=== PATIENT | male | born 1970 | race African-American/Black ===

== ENCOUNTER 2019-02-03 12:14 | Emergency (ER) | payer BC ==
--- NOTE | 2019-02-03 12:57 | UC ---
Knee Pain HPI - HPI Summary HPI Summary: 48-year-old male comes in with a chief complaint of right popliteal pain. He's had it on and off this morning twice. It's mild makes the pain at about 1 out of 10 when it's there. 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 He is mostly concerned about the possibility of a DVT. Denies any injury. No chest pain or shortness of breath. Feels well otherwise. He is not on a blood thinner at this time. Nothing makes the pain worse because he doesn't have any pain right now. - History of Current Complaint Chief Complaint: UCGeneralIllness Stated Complaint: POSS BLOOD CLOT Time Seen by Provider: 02/03/19 12:34 Pain Intensity: 1 - Allergies/Home Medications Allergies/Adverse Reactions: Allergies Allergy/AdvReac Type Severity Reaction Status Date / Time Penicillins Allergy Unknown Verified 02/03/19 12:36 Reaction Details Home Medications: Home Medications ALPRAZolam [Alprazolam] 0.25 mg PO 02/03/19 [History] Olmesartan Medoxomil 40 mg PO 02/03/19 [History] hydrOXYzine HCl [Hydroxyzine HCl] 10 mg PO 02/03/19 [History] PMH/Surg Hx/FS Hx/Imm Hx Previously Healthy: Yes - DVT Psychological History: Anxiety - Surgical History Surgical History: None - Family History Known Family History: Positive: Non-Contributory - Social History Alcohol Use: None Substance Use Type: None Smoking Status (MU): Never Smoked Tobacco Review of Systems All Other Systems Reviewed And Are Negative: Yes Constitutional: Positive: Negative Skin: Positive: Negative Eyes: Positive: Negative ENT: Positive: Negative Respiratory: Positive: Negative Cardiovascular: Positive: Negative Gastrointestinal: Positive: Negative Motor: Positive: Negative Neurovascular: Positive: Negative Musculoskeletal: Positive: Other: - see hpi Neurological: Positive: Negative Psychological: Positive: Anxious Is Patient Immunocompromised?: No Physical Exam Triage Information Reviewed: Yes Appearance: Well-Appearing, No Pain Distress, Well-Nourished Vital Signs: Initial Vital Signs Temp 97.9 F 02/03/19 12:31 Pulse 75 02/03/19 12:31 Resp 18 02/03/19 12:31 BP 150/100 02/03/19 12:31 Pulse Ox 97 02/03/19 12:31 Vital Signs Reviewed: Yes Eye Exam: Normal Eyes: Positive: Conjunctiva Clear Neck exam: Normal Neck: Positive: Supple Respiratory: Positive: Lungs clear, Normal breath sounds, No respiratory distress Cardiovascular: Positive: RRR Musculoskeletal Exam: Normal Musculoskeletal: Positive: Strength Intact, ROM Intact, Other: - The right knee examination is normal. The knee has full range of motion is nontender. Negative Martha's. Stable to exam. The calf is also nontender to palpation. Normal capillary refill distally. No sensation deficit. Neurological Exam: Normal Neurological: Positive: Alert, Muscle Tone Normal Psychological Exam: Normal Psychological: Positive: Age Appropriate Behavior Skin Exam: Normal Knee Pain Course/Dx - Course Course Of Treatment: Patient Name: INÉS REYES Medical Record#: [id number] Ordering Physician: Marcelino Ferrari MD Acct.#: [id number] : 1970 Age: 48 Sex: M Location: [facility] Exam Date: 02/03/19 1251 ADM Status: REG ER Order Information: KNEE RIGHT 4+ VWS Accession Number: [id number] CPT: 27657 HISTORY: popliteal pain . COMPARISONS: None relevant available at the time of dictation. VIEWS: 4, Frontal, lateral, axial, and oblique views of the right knee FINDINGS: BONE DENSITY: Normal. BONES: There is no displaced fracture. JOINTS: There is no arthropathy. There is no suprapatellar joint effusion or lipohemarthrosis. ALIGNMENT: There is no dislocation. SOFT TISSUES: Unremarkable. OTHER FINDINGS: None. IMPRESSION: NO ACUTE OSSEOUS INJURY. IF SYMPTOMS PERSIST, RECOMMEND REPEAT IMAGING. <Electronically signed by Hakan Ash MD in OV> 02/03/19 1329 Order Information: VL LOWER EXT VEINS RIGHT Accession Number: [id number] CPT: 05325 HISTORY: right popliteal pain,Hx DVT COMPARISONS: None relevant TECHNIQUE: Multiple transverse and longitudinal ultrasound images were obtained of the right lower extremity from the level of the common femoral vein inferiorly through to the infrapopliteal veins using grayscale, color Doppler, and spectral Doppler imaging with and without compression and with augmentation. Comparison images were obtained of the contralateral common femoral vein. FINDINGS: VEINS: The venous system of the right lower extremity is compressible throughout its course, with normal flow on color Doppler imaging and normal response to augmentation on spectral Doppler imaging. SOFT TISSUES: Unremarkable. OTHER FINDINGS: None. IMPRESSION: NO RIGHT LOWER EXTREMITY DEEP VEIN THROMBOSIS <Electronically signed by Hkaan Ash MD in [place]> 02/03/19 2926 I discussed the x-ray and ultrasound results with the patient I discussed the x- ray and ultrasound reports with the patient. Because of the patient's history of blood clots he would like to follow-up with vascular surgery. I'm giving him general surgery's number as they have affiliation with vascular surgery in [place]. Patient will get reevaluated if he worsens or has any questions or concerns. - Differential Dx/Diagnosis Provider Diagnosis: Posterior right knee pain Discharge - Sign-Out/Discharge Documenting (check all that apply): Patient Departure All imaging exams completed and their final reports reviewed: Yes - Discharge Plan Condition: Stable Disposition: HOME Patient Education Materials: Knee Pain (ED) Referrals: Nuvia Lamas MD [Medical Doctor] - Marc Morgan MD [Medical Doctor] - [facility] [Provider Group] Additional Instructions: FOLLOW UP WITH YOUR DOCTOR IF NOT COMPLETELY IMPROVED. CALL GENERAL SURGERY TO ARRANGE VASCULAR SURGERY FOLLOW UP. GET RECHECKED FOR ANY WORSENING OF YOUR CONDITION OR QUESTIONS OR CONCERNS. - Billing Disposition and Condition Condition: STABLE Disposition: Home
== END 2019-02-03 14:31 | disposition home or self-care (01) ==
LOC: UCEAST 12:14
DX: M25.561 Pain in right knee (principal); Z86.718 Personal history of other venous thrombosis and embolism; Z88.0 Allergy status to penicillin
CPT/HCPCS: 99201; G0463

== ENCOUNTER 2019-10-07 21:41 | Emergency (ER) | payer BC ==
--- NOTE | 2019-10-07 21:59 | ED ---
Headache - HPI Summary HPI Summary: This patient is a 49 year old M presenting to [facility] accompanied by female friend with a chief complaint of migraine since 2-3 hours ago today 10/07/19. Symptoms aggravated by nothing. Symptoms alleviated by medication. Patient reports paramedics concerned of blockage in heart especially since female friend reports hx blood clot. Pt reports when he usually gets migraines (started when he was 20 years old) he usually gets numbness, which today was on his right side, starting in his leg going to his face which leads to his speech getting slurred. Pt reports tonight his vision was slightly blurry so he took 2 pills of hydroxyzine , lied down, and then numbness started moving to face. Pt reports he was getting ready to go out to watch movie. Pt reports he had not had migraine in several months. Pt reports right now migraine is concentrated in frontal area of head but denies intense pain or numbness. Pt denies CP, trouble breathing, pain or swelling in legs, and gait differences. - History Of Current Complaint Chief Complaint: EDHeadache Stated Complaint: HEADACHE PER EMS Time Seen by Provider: 10/07/19 21:46 Hx Obtained From: Patient Onset/Duration: Started hours ago - 2-3, Still Present Character: Migraine Aggravating Factor: Nothing Allevating Factors: Medication Associated Signs And Symptoms: Visual Changes - blurry, Other (Noted In Comments ) - numbness in legs and face, slurred speech; denies CP, trouble breathing, pain or swelling in legs, and gait differences. - Allergies/Home Medications Allergies/Adverse Reactions: Allergies Allergy/AdvReac Type Severity Reaction Status Date / Time Penicillins Allergy Unknown Verified 02/03/19 12:36 Reaction Details PMH/Surg Hx/FS Hx/Imm Hx Cardiovascular History: Reports: Hx Hypertension Neurological History: Reports: Hx Migraine - Surgical History Surgery Procedure, Year, and Place: none Infectious Disease History: No Infectious Disease History: Denies: Traveled Outside the [place] in Last 30 Days - Family History Known Family History: Positive: Diabetes, Other - prostate cancer - Social History Alcohol Use: None Hx Substance Use: No Substance Use Type: Reports: None Hx Tobacco Use: No Smoking Status (MU): Never Smoked Tobacco Review of Systems Positive: Blurred Vision Negative: Chest Pain Positive: Other - denies trouble breathing Positive: Other - denies pain or swelling in legs, gait differences Positive: Headache - migraine, Numbness, Slurred Speech All Other Systems Reviewed And Are Negative: Yes Physical Exam - Summary Physical Exam Summary: Appearance: Well-appearing, Well-nourished, lying in bed comfortably Skin: Warm, dry, no obvious rash Eyes: sclera anicteric, no conjunctival pallor ENT: mucous membranes moist, pharynx appears normal Neck: Supple, nontender Respiratory: Clear to auscultation, no signs of respiratory distress Cardiovascular: Normal S1, S2. No murmurs. Normal distal pulses in tibial and radial bilaterally. Abdomen: Soft, nontender, normal active bowel sounds present Musculoskeletal: Normal, Strength/ROM Intact Neurological: A&Ox3, awake and alert, mentation is normal, speech is fluent and appropriate Psychiatric: affect is normal, does not appear anxious or depressed Triage Information Reviewed: Yes Vital Signs On Initial Exam: Initial Vitals Temp Pulse Resp BP Pulse Ox 97.8 F 81 19 133/83 100 10/07/19 21:43 10/07/19 21:43 10/07/19 21:43 10/07/19 21:43 10/07/19 21:43 Vital Signs Reviewed: Yes Procedures - Sedation Patient Received Moderate/Deep Sedation with Procedure: No Diagnostics - Vital Signs Vital Signs Temp Pulse Resp BP Pulse Ox 10/07/19 21:43 97.8 F 81 19 133/83 100 - Laboratory Lab Statement: Any lab studies that have been ordered have been reviewed, and results considered in the medical decision making process. Headache Course/Dx - Course Course Of Treatment: This patient is a 49 year old M presenting to [facility] accompanied by female friend with a chief complaint of migraine since 2-3 hours ago today 10/07/19. Symptoms alleviated by medication. Pt reports when he usually gets migraines he usually gets numbness, which today was on his right side, starting in his leg going to his face which leads to his speech getting slurred. Pt reports tonight his vision was slightly blurry so he took 2 pills of hydroxyzine , lied down, and then numbness started moving to face. Pt reports right now migraine is concentrated in frontal area of head but denies intense pain or numbness. Pt denies CP, trouble breathing, pain or swelling in legs, and gait differences. Physical Exam Findings reveal no abnormalities. Patient will be discharged with dx of migraine headache and follow up from Dr. MacAdam, PCP. The patient is agreeable with this plan. - Diagnoses Provider Diagnoses: Migraine headache Discharge ED - Sign-Out/Discharge Documenting (check all that apply): Patient Departure - discharge - Discharge Plan Condition: Improved Disposition: HOME Patient Education Materials: Migraine Headache (ED) Referrals: Nuvia Lamas MD [Primary Care Provider] - Additional Instructions: Since your symptoms are improving and there is nothing in your history or exam to make me concerned about stroke, heart attack, blood clots or other serious problems, I think it is safe to let you go home at this point. The things the medics were worried about do not sound like a significant concern. There often is some artifact on monitor leads during transport and I think that is what they were seeing. Certainly here your monitoring shows a normal heart rhythm. - Billing Disposition and Condition Condition: IMPROVED Disposition: Home - Attestation Statements Document Initiated by Nicoibe: Yes Documenting Scribe: Rufina Reyes Provider For Whom Nicoibe is Documenting (Include Credential): Dr. Faheem Saravia MD Scribe Attestation: I, Rufina Reyes, scribed for Dr. Faheem Saravia MD on 10/10/19 at 1743. Scribe Documentation Reviewed: Yes Provider Attestation: The documentation as recorded by the Rufina alvarado accurately reflects the service I personally performed and the decisions made by me, Dr. Faheem Saravia MD Status of Scribe Document: Viewed
== END 2019-10-07 23:01 | disposition home or self-care (01) ==
LOC: ED 21:41
DX: G43.909 Migraine, unspecified, not intractable, without status migrainosus (principal); H53.8 Other visual disturbances; I10 Essential (primary) hypertension; Z88.0 Allergy status to penicillin
CPT/HCPCS: 93005; 99283

== ENCOUNTER 2019-12-25 15:56 | Emergency (ER) | payer BC ==
--- NOTE | 2019-12-25 18:11 | UC ---
Lower Extremity/Ankle HPI - HPI Summary HPI Summary: Patient is a 49-year-old male presenting with intermittent left calf pain 2 days. Denies any swelling, redness, bruising. She denies numbness and tingling. Denies decreased range of motion. Describes pain as a cramping feeling. Aggravated by walking. Rates pain 0-1/10. Patient states he is "mostly here out of fear" as he has a history of 3 prior DVTs. Patient states the first one was from ankle surgery as a teen and the other two he was told were due to lots of plane travel. Last one 3-4 years ago. Denies sob and difficulty breathing. Denies chest pain. Not taking any anticoagulants. - History of Current Complaint Chief Complaint: UCLowerExtremity Stated Complaint: LEG PAIN Hx Obtained From: Patient Pain Intensity: 1 - Allergies/Home Medications Allergies/Adverse Reactions: Allergies Allergy/AdvReac Type Severity Reaction Status Date / Time Penicillins Allergy Unknown Verified 12/25/19 16:13 Reaction Details PMH/Surg Hx/FS Hx/Imm Hx Cardiovascular History: Deep Vein Thrombosis - Surgical History Surgical History: None Surgery Procedure, Year, and Place: none - Family History Known Family History: Positive: Diabetes, Other - prostate cancer - Social History Alcohol Use: None Substance Use Type: None Smoking Status (MU): Never Smoked Tobacco Review of Systems All Other Systems Reviewed And Are Negative: Yes Constitutional: Positive: Negative Skin: Positive: Negative ENT: Positive: Negative Respiratory: Positive: Negative. Negative: Shortness Of Breath, Cough Cardiovascular: Positive: Negative. Negative: Palpitations, Chest Pain Gastrointestinal: Positive: Negative Neurovascular: Positive: Negative Musculoskeletal: Positive: Calf Tenderness - left. Negative: Decreased ROM, Edema Neurological: Positive: Negative. Negative: Paresthesia, Numbness Physical Exam - Summary Physical Exam Summary: Vital Signs Reviewed: Yes A+Ox3, no distress Eyes: Conjunctiva Clear ENT: Hearing grossly normal Neck: Positive: Supple Respiratory: Positive: No respiratory distress, No accessory muscle use + CTA throughout no w/r Cardiovascular: RRR nl s1, s2 no m/r Musculoskeletal Exam: BASS x 4 without difficulty Strength Intact, ROM Intact, + minimal TTP of left calf, no erythema, no ecchymosis, no edema, sensation grossly intact, DP/PT pulses 2+, cap refill <2sec, left calf circumference ~ 18.25in, right calf circumference ~18.4in Neurological: Positive: Alert, + sensation throughout Psychological: Positive: age appropriate behavior Skin: Positive: no rash, no ecchymosis Vital Signs: Initial Vital Signs Temp 98.1 F 12/25/19 16:10 Pulse 86 12/25/19 16:10 Resp 16 12/25/19 16:10 BP 121/88 12/25/19 16:10 Pulse Ox 100 12/25/19 16:10 Diagnostics - Radiology lower ext vein Radiology Interpretation Completed By: Radiologist Summary of Radiographic Findings: FINDINGS: Left deep veins: Hyperechoic filling defects within the distal left gastrocnemius veins just proximal to the confluence with the popliteal vein which shows no Doppler flow or augmentation. The common femoral, femoral, and popliteal veins show normal compression, augmentation, and phasic Doppler flow. Left superficial veins: Normal. Saphenofemoral junction is patent without thrombus. Soft tissues: Normal. IMPRESSION: DVT distal gastrocnemius veins. Lower Extremity Course/Dx - Course Course Of Treatment: Patient presenting with intermittent left calf pain 2 days. Patient stated concern for DVT. Ultrasound revealed DVT and gastrocnemius veins. Discussed this with patient. Dr. Vergara spoke with Dr. Meza in the ED who stated the patient needs to be seen tonight since he is symptomatic. I informed the patient that it is recommended he go straight to the emergency room for further evaluation and treatment. Patient stated he had a flight at 3 AM which I told him is strongly recommended against, as it puts him at greater risk for worsening clot and possible pulmonary embolism. Patient voiced understanding and agreed to go to the emergency room upon leaving here. Patient stated he did not want to go to [facility] [place] [place] [facility]. Patient requested that we call [place] [facility] to inform them he was coming. RAVI Menard called and spoke with charge nurse Veronica to give report and a ultrasound result. Patient stable and in no pain or respiratory distress upon departure. - Differential Dx/Diagnosis Differential Diagnosis/HQI/PQRI: DVT, Strain, Tendonitis Provider Diagnosis: Deep vein thrombosis (DVT) of left lower extremity Discharge ED - Sign-Out/Discharge Documenting (check all that apply): Patient Departure All imaging exams completed and their final reports reviewed: Yes - Discharge Plan Condition: Stable Disposition: HOME-RECOMMEND TO ED Patient Education Materials: Deep Vein Thrombosis (ED) Referrals: Nuvia Lamas MD [Primary Care Provider] - Additional Instructions: As discussed, your ultrasound was positive for a DVT in your gastrocnemius veins. The provider that evaluated you today states that you need additional testing that can be completed the emergency department. It is recommended that you go directly to emergency department for further evaluation and treatment. If pain becomes worse, you feel lightheaded, you have difficulty breathing, or you have any other concerns while you are driving to emergency department, it is recommended to pullover and contact 911. - Billing Disposition and Condition Condition: STABLE Disposition: Home-Recommend to ED
== END 2019-12-25 21:38 | disposition home health service (06) ==
LOC: UCEAST 15:56
DX: I82.462 Acute embolism and thrombosis of left calf muscular vein (principal); Z88.0 Allergy status to penicillin
CPT/HCPCS: 99212; G0463